=== PATIENT | female | born 1975 | race Caucasian/White ===

== ENCOUNTER 2021-12-23 11:34 | Emergency (ER) | payer MEDICAID ==
[2021-12-23] MEDS ORDERED: methylPREDNISolone Sodium Succinate 125 MG/2 ML SDV IM ONE (13:07)
== END 2021-12-23 13:40 | disposition home or self-care (01) ==
LOC: JP.ED 11:34
DX: M54.50 Low back pain, unspecified (principal); I10 Essential (primary) hypertension
CPT/HCPCS: 74176; 74176-26; 96372; 99282; 99283-25; J2930

== ENCOUNTER 2022-04-09 15:45 | Emergency (ER) | payer MEDICAID ==
[2022-04-09] MEDS ORDERED: Ketorolac 30 MG/ML SDV IM ONE (16:20)
[2022-04-09] MEDS ORDERED: Sodium Chloride 0.9% 10 ML Syringe FLUSH PRN (16:29)
[2022-04-09] MEDS ORDERED: Ketorolac 30 MG/ML SDV IVPUSH ONE (16:29)
[2022-04-09 16:55] LABS: ESTIMATED GFR 81 mL/min (>60); TROPONIN I HIGH SENSITIVITY 4.1 pg/mL (<=60.3)
[2022-04-09] MEDS ORDERED: methylPREDNISolone Sodium Succinate 125 MG/2 ML SDV IVPUSH ONE (17:15)
== END 2022-04-09 17:55 | disposition home or self-care (01) ==
LOC: JP.ED 15:45
DX: M54.2 Cervicalgia (principal); I10 Essential (primary) hypertension; Z79.899 Other long term (current) drug therapy; Z90.49 Acquired absence of other specified parts of digestive tract
CPT/HCPCS: 36415; 71046; 80048; 84484; 85025; 85379; 93005; 96374; 96375; 99284; J1885; J2930; J3490